=== PATIENT | female | born 1945 | race Caucasian/White ===

== ENCOUNTER 2017-10-12 20:34 | Emergency (ER) | payer MEDICARE, OTHER ==
[2017-10-12 20:52] VITALS: BP 149/83
[2017-10-12] MEDS ORDERED: LIDOCAINE 1% 2 ML VIAL SUBQ STA (21:59)
--- NOTE | 2017-10-12 22:45 | ED Physician Documentation ---
PD HPI UPPER EXT INJURY - Stated complaint Stated Complaint: RT FINGER LAC - Chief complaint Chief Complaint: Laceration - History of Present Illness Location: Right, Finger Type of injury: Laceration Where injury occurred: Home Timing - onset: Today Timing - details: Abrupt onset, Still present Similar symptoms before: Has not had sx before Recently seen: Not recently seen - Additonal information Additional information: Patient is a 71 year old female with no significant past medical history who is presenting to the emergency department for finger laceration. Patient states that she was holding an olive oil bottle that she had just refilled. the bottle slipped out of her hand and broke, patient cut her hand on the bottle. patient states she is up to day with her vaccines and denies any other trauma. Review of Systems Constitutional: denies: Fever, Chills Eyes: reports: Reviewed and negative Ears: reports: Reviewed and negative Nose: reports: Reviewed and negative Throat: reports: Reviewed and negative Cardiac: reports: Reviewed and negative Respiratory: reports: Reviewed and negative GI: reports: Reviewed and negative : reports: Reviewed and negative Skin: reports: Laceration (s) Musculoskeletal: reports: Extremity pain Neurologic: reports: Reviewed and negative Immunocompromised: denies: Immunocompromised PD PAST MEDICAL HISTORY - Past Medical History Past Medical History: Yes Cardiovascular: High cholesterol Other Past Medical History: ocular HSV - Past Surgical History Past Surgical History: No - Present Medications Home Medications: Ambulatory Orders Medication Instructions Recorded Confirmed Acyclovir 800 mg PO 10/12/17 Aspirin 81 mg PO 10/12/17 Biotin 5,000 mcg SL 10/12/17 Estradiol 0.5 mg PO 10/12/17 Multivitamin [Multivitamins] 1 each PO 10/12/17 No Known Home Medications [No 10/12/17 10/12/17 Known Home Medications] Simvastatin 40 mg PO 10/12/17 Spironolactone 50 mg PO 10/12/17 Trifluridine ml OP 10/12/17 prednisoLONE acetate [Prednisolone ml OP 10/12/17 Acetate] - Allergies Allergies/Adverse Reactions: Allergies Allergy/AdvReac Type Severity Reaction Status Date / Time No Known Drug Allergies Allergy Verified 10/12/17 20:51 - Social History Does the pt smoke?: No Smoking Status: Never smoker Does the pt have substance abuse?: No - Immunizations Immunizations are current?: Yes - POLST Patient has POLST: No PD ED PE NORMAL - Vitals Vital signs reviewed: Yes - General General: Alert and oriented X 3, No acute distress - HEENT HEENT: Atraumatic - Cardiac Cardiac: RRR - Respiratory Respiratory: No respiratory distress - Abdomen Abdomen: Non distended - Neuro Neuro: Alert and oriented X 3, No motor deficit, Normal speech Eye Opening: Spontaneous PD ED PE EXPANDED - Extremities Extremities: Left finger(s) (avulsion laceration and 1 cm laceration of pad of 5th digit), Motor intact, Sensory intact, Vascular intact, Tendon intact Results - Vitals Vitals: Vital Signs - 24 hr 10/12/17 20:50 Temperature 36.8 C Heart Rate 86 Respiratory 18 Rate Blood Pressure 149/83 H O2 Saturation 99 Oxygen O2 Source Room air Procedures - Laceration (location) fifth digit left hand Length in cm: 1 Wound type: Flap Neurovascular status: Sensory intact Anesthesia: Lidocaine 1% Wound Preparation: Chlorhexadine Skin layer closure: Dermabond, Steri strips Other: Patient tolerated well, Dressing applied, Tetanus UTD Complexity: Simple - Regional nerve block Nerve block site: Digital - note digit(s) (5th) Right / left: Right Nerve block anesthesia: Lidocaine 1% Nerve block aftercare: Excellent anesthesia PD MEDICAL DECISION MAKING - ED course Complexity details: reviewed old records, reviewed results, re-evaluated patient , considered differential, d/w patient, d/w family ED course: Rios was seen and examined at bedside. Digital block was performed and laceration was repaired. Patient's avulsion was cauterized. Patient required no further work up and was stable for discharge with outpatient follow up. Departure - Departure Disposition: 01 Home, Self Care Clinical Impression: Laceration Condition: Good Instructions: ED Laceration Ext Skin Glue Follow-Up: DIPIKA RUBI MD [Primary Care Provider] - As Needed Comments: Your symptoms today are being caused by a hand laceration. You should keep the dressing on the wound for the first 24 hours. After that you should keep it clean and dry. you can take motrin or tylenol as needed for pain. If one of the strips comes off in the next few day you should replace it. Otherwise they will fall off on their own.
== END 2017-10-12 22:45 | disposition home or self-care (01) ==
LOC: ED 20:34
DX: S61.217A Laceration without foreign body of left little finger without damage to nail, initial encounter (principal); W25.XXXA Contact with sharp glass, initial encounter; E78.00 Pure hypercholesterolemia, unspecified
CPT/HCPCS: 12001; 99282; 99283